=== PATIENT | female | born 2000 | race Caucasian/White ===

== ENCOUNTER 2020-05-12 17:52 | Emergency (ER) | payer OTHER ==
[~2020-05-12] VITALS: Ht 165.1 cm; Wt 72.6 kg
[~2020-05-12 17:52] MED LIST: BACTRIM DS TAB1 EACH PO; CELEXA20 MG PO; IBUPROFEN 600600 M1 PO; NAPROSYN500 MG PO; TRAZODONE 150150 M1 PO; VISTARIL 25 MG25 M1
[2020-05-12 17:55] VITALS: BP 138/82
[2020-05-12] MEDS ORDERED: KEPPRA 500 MG500 MG PO ×2 (18:02→18:17)
== END 2020-05-12 18:22 | disposition home or self-care (01) ==
LOC: M.ERS 17:52
DX: G40.909 Epilepsy, unspecified, not intractable, without status epilepticus (principal); Z88.1 Allergy status to other antibiotic agents; Z88.8 Allergy status to other drugs, medicaments and biological substances; Z90.89 Acquired absence of other organs